=== PATIENT | male | born 1965 | race Caucasian/White ===

== ENCOUNTER 2018-01-28 09:39 | Emergency (ER) | payer OTHER ==
[2018-01-28] MEDS ORDERED: TORAdol 30 mg Injection IM ONE (10:02)
[2018-01-28] MEDS ORDERED: TORAdol 30 mg Injection ONE (10:08)
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
[2018-01-28 10:32] VITALS: BP 122/80; PULSE 78; O2SAT 98
== END 2018-01-28 10:32 | disposition home or self-care (01) ==
LOC: ED 09:39
DX: K04.7 Periapical abscess without sinus (principal); K08.89 Other specified disorders of teeth and supporting structures; G89.4 Chronic pain syndrome
CPT/HCPCS: 96372; 99283; 99284; J1885

== ENCOUNTER 2018-03-04 12:49 | Emergency (ER) | payer OTHER ==
[2018-03-04] MEDS ORDERED: Sodium Chloride 0.9% 1000 ML 1,000 ML IV STA (12:57)
[2018-03-04] MEDS ORDERED: Sodium Chloride 0.9% 1000 ML 1,000 ML ONE (13:04)
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
[2018-03-04 13:19] LABS: Granulocyte Absolute (ANC) 2.78 (1.4-6.9); Mean Cell Volume 88.1 fl (78-100); Mean Corpuscular Hemoglobin 30.8 pg (26-32); Mean Platelet Volume 9.2 fl (6-9.5); Platelet Count 305 K/mm3 (150-450); Red Blood Count 4.54 M/mm3 (4.1-5.6); Red Cell Distribution Width 12.7 % (11.5-14.0)
[2018-03-04 13:34] LABS: ALBUMIN 4.5 g/dL (3.5-5.0); ALKALINE PHOSPHATASE 91 U/L (38-126); AMYLASE 68 U/L (30-110); ANION GAP 16.9 MEQ/L (5-15); BLOOD UREA NITROGEN 14 mg/dL (9-20); CHLORIDE 101 mmol/L (98-107); Calcium 9.6 mg/dL (8.4-10.2); Carbon Dioxide 26 mmol/L (22-30); Glucose 115 mg/dL (74-106); LIPASE 57 U/L (23-300); Potassium 3.9 mmol/L (3.5-5.1); SGOT/AST 32 U/L (17-59); SGPT/ALT 24 U/L (0-50); SODIUM 139 mmol/L (137-145); Total Protein 8.1 g/dL (6.3-8.2)
[2018-03-04 13:49] LABS: ETHYL ALCOHOL < 10 mg/dL (0-9); TROPONIN < 0.012 ng/mL (0.000-0.034)
[2018-03-04 14:01] LABS: Appearance CLEAR (CLEAR); Specific Gravity 1.005 (1.005-1.025)
[2018-03-04 14:02] LABS: Bilirubin NEGATIVE (NEGATIVE); Blood NEGATIVE Ery/ul (0-5); Glucose NEGATIVE (NEGATIVE); Ketones NEGATIVE (NEGATIVE); Leukocyte Esterase NEGATIVE (NEGATIVE); Nitrite NEGATIVE (NEGATIVE); Protein,Urine Dip NEGATIVE (Negative); Urobilinogen NORMAL mg/dL (0-1)
[2018-03-04 14:07] LABS: Eosinophil 3 % (0.00-3.0); Lymphocytes 61 % (24-44); Monocyte 8 % (0.0-12.0); Neutrophils 28 % (36.-66.); Platelet Estimate NORMAL (NORMAL); Total Cells Counted 100
[2018-03-04 14:08] LABS: Hypochromia 1+
[2018-03-04 14:25] VITALS: O2SAT 98
[2018-03-04 14:55] LABS: Amphetamine,Urine POSITIVE (NEGATIVE); Barbiturate,Urine NEGATIVE (NEGATIVE); Benzodiazepine,Urine NEGATIVE (NEGATIVE); Cocaine,Urine NEGATIVE (NEGATIVE); Methadone,Urine NEGATIVE (NEGATIVE); Opiate,Urine POSITIVE (NEGATIVE); PCP,Urine NEGATIVE (NEGATIVE); THC,Urine NEGATIVE (NEGATIVE)
[2018-03-04 15:04] VITALS: BP 152/98
[2018-03-04 15:56] VITALS: PULSE 110
--- NOTE | 2018-03-04 20:49 | XRAY ---
Indication: Syncope. Comparison: None Portable chest hyperinflated and clear. Heart and mediastinal structures within normal limits. Bony thorax intact with old left clavicle fracture. Impression: Nonacute hyperinflated chest.
--- NOTE | 2018-03-04 20:49 | XRAY ---
Indication: Dizziness and syncope. Multiple contiguous axial images obtained through the head without contrast. Comparison: None Normal appearing brain parenchyma, ventricles, and bony calvarium. Visualized paranasal sinuses and mastoid air cells are clear. Impression: Normal CT head without contrast exam. Comment: Preliminary interpretation was made by [facility]. No discrepancy. CTDI 48.43
== END 2018-03-04 15:56 | disposition home or self-care (01) ==
LOC: ED 12:49
DX: R55 Syncope and collapse (principal); F15.90 Other stimulant use, unspecified, uncomplicated; Z79.899 Other long term (current) drug therapy
CPT/HCPCS: 36000; 36415; 70450; 71045; 80053; 80302; 80307; 81002; 82150; 83690; 83735; 84484; 85025; 93005; 96360; 99284; G0480

== ENCOUNTER 2019-09-29 15:14 | Emergency (ER) | payer MEDICARE ==
[2019-09-29 15:28] VITALS: BP 136/85; PULSE 78; O2SAT 99
[2019-09-29] MEDS ORDERED: TORAdol 30 mg Injection IM ONE (15:31)
[2019-09-29] MEDS ORDERED: Rocephin 1000 MG INJ IM ONE (15:31)
[2019-09-29] MEDS ORDERED: Rocephin 1000 MG INJ ONE (15:35)
[2019-09-29] MEDS ORDERED: XYLOCAINE 1% HCL 20 ML MDV ONE (15:35)
[2019-09-29] MEDS ORDERED: TORAdol 30 mg Injection ONE (15:35)
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
== END 2019-09-29 16:02 | disposition home or self-care (01) ==
LOC: ED 15:14
DX: K04.7 Periapical abscess without sinus (principal)
CPT/HCPCS: 96372; 99283; J0696; J1885